=== PATIENT | female | born 1975 | race Caucasian/White ===

== ENCOUNTER 2016-03-24 09:24 | Emergency (ER) | payer MEDICAID ==
--- NOTE | 2016-03-24 10:44 | ERNOTE ---
Date of Service: 03/24/16 Time Seen by Provider: 03/24/16 10:19 Stated Complaint: SOB, CHEST PAIN Presenting Symptoms:: cough Source: patient Exam Limitations: no limitations Immunizations: IMMUNIZATION HX Immunizations Up to Date Yes History of Influenza Vaccine No Hx Pneumococcal Vaccination No Allergies/Adverse Reactions: Allergies Iodinated Contrast Media - IV Dye [IV Dye, Iodine Containing Contrast ] Allergy (Verified 03/24/16 10:03) iodine Allergy (Verified 03/24/16 10:03) Home Medications: HOME MEDICATIONS Ipratropium/Albuterol Sulfate [Combivent Respimat Inhal [place]] 2 puff IH QID #1 inhaler 07/04/15 [Last Taken Unknown] Albuterol Sulfate [Albuterol Sulfate 2.5 MG/0.5ML] 1 vial IH Q4H PRN #75 vial [Last Taken Unknown] Doxycycline Hyclate [Vibratab] 100 mg PO BID #20 tab 03/24/16 [Last Taken Unknown] Ipratropium [place] [Atrovent] 0.5 mg IH Q6H #75 vial.neb 03/24/16 [Last Taken Unknown] predniSONE [Prednisone] 3 tab PO DAILY #9 tab 03/24/16 [Last Taken Unknown] - History of Present Ilness Narrative: Pt. comes in with c/o dyspnea on excertion and cough for two week. Pt. states that symptoms started as sore throat with sinus congestion but has now turned to the chest congestion. Pt. has a hx of COPD with washout procedure previously. Pt. denies any NVD, fever, or headache at this time. Pt. states that cold weather, deep breathing, and lying down exacerbates the symptoms. Pt. is also a known current smoker. Review of Systems - Review of Systems Constitutional: Present: recent illness. Absent: fever, chills, weakness, fatigue, malaise EYE: Present: no symptoms reported ENT: Present: no symptoms reported. Absent: ear pain, nose pain, nose congestion, nasal drainage, sore throat Respiratory: Present: shortness of breath, cough, wheezing Cardiology: Present: chest pain - with deep breathing and cough only B lateral rib pain Gastrointestinal/Abdominal: Present: no symptoms reported. Absent: nausea, vomiting, diarrhea Genitourinary: Present: no symptoms reported Musculoskeletal: Present: no symptoms reported. Absent: back pain, joint pain Skin: Present: no symptoms reported Neurological: Present: no symptoms reported. Absent: headache, dizziness/light- headedness, numbness, tingling All Other Systems: All systems neg except as marked - Patient's Past Medical History Patient History - Medical: Anemia, Anxiety, Headache, Migraines Patient History - Cardiac/Respiratory: Asthma, COPD Patient History - Cancer: No Hx of Cancer Patient History - Surgical Procedures: No surgical history, Hysterectomy - Family History Mother Family History - Cardiac/Respiratory: COPD - Social History Living Situations: spouse Smoking Status: Current every day smoker Have you smoked in the past 12 months: Yes Do you dip or chew tobacco: No Patient requests Smoking Cessation Consult: No Initiate information on Smoking Cessation: No Alcohol Use: occasionally Drug Use: none, marijuana Physical Exam - Physical Exam General Appearance: Present: wd/wn, alert, no apparent distress Eye Exam: Normal inspection: bilateral, PERRL: bilateral, EOMI: bilateral Ears, Nose, Throat: Present: normal ENT inspection, hearing grossly normal, normal pharynx Neck: Present: normal inspection, nontender. Absent: lymphadenopathy (R), lymphadenopathy (L) Respiratory: Present: decreased breath sounds, expiration (prolonged), wheezing - BUL. 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 Absent: pallor, skin rash ED Progress - Vital Signs Patient's Vital Signs:: I have reviewed the patient's vital signs. Vital Signs: Vital Signs 03/24/16 09:56 Temperature 36.3 C L Pulse Rate 68 Respiratory 16 Rate Blood Pressure 154/85 O2 Sat by Pulse 99 Oximetry - X-Ray X-Ray #1 X-Ray: chest Interpretation: Reviewed by me X-ray Comments: no acute process with chronic emphysematous changes - Progress/Reassessment Chief Complaint: Upper Respiratory Symptoms Progress:: Unchanged Departure - Departure Clinical Impression: Bronchitis, COPD exacerbation Disposition: Home self-care Condition: Good Instructions: Chronic Obstructive Pulmonary Disease, [id number] Additional Instructions: Please follow up with primary provider in 1-2 days. Please start inhalers for COPD and finish prednisone and antibiotics as prescribed. Prescriptions: Albuterol Sulfate [Albuterol Sulfate 2.5 MG/0.5ML] 1 vial IH Q4H PRN #75 vial PRN Reason: Shortness Of Breath Doxycycline Hyclate [Vibratab] 100 mg PO BID #20 tab Ipratropium Avis [Atrovent] 0.5 mg IH Q6H #75 vial.neb predniSONE [Prednisone] 3 tab PO DAILY #9 tab
[2016-03-24 12:22] VITALS: BP 148/82
== END 2016-03-24 12:22 | disposition home or self-care (01) ==
LOC: ER 09:24
DX: J20.9 Acute bronchitis, unspecified (principal); J44.1 Chronic obstructive pulmonary disease with (acute) exacerbation; F17.210 Nicotine dependence, cigarettes, uncomplicated; Z90.710 Acquired absence of both cervix and uterus

== ENCOUNTER 2016-05-14 09:26 | Emergency (ER) | payer MEDICAID ==
[2016-05-14 09:38] VITALS: BP 152/83
--- OUTSIDE RECORDS SUMMARY | 2016-05-14 10:02 | XMS REPORT | Continuity of Care Document ---
:1975 Author Organization [facility] ([facility]) Address [address] [place] [address] Phone [phone] Care Team Providers Name Role Phone Provider, No-Primary Care Primary Care Provider Unavailable Source Comments This disclosure is being made pursuant to the Care Everywhere program, applicable federal and state laws, and may not contain all informaitonavailable regarding this patient.[facility] ([facility]) Active Allergies and Adverse Reactions No Active Allergies Current Medications Not on file Active Problems Not on file Social History Tobacco Use Types Packs/Day Years Used Date Never Assessed Last Filed Vital Signs Vital Sign Reading Time Taken Blood Pressure - - Pulse - - Temperature - - Respiratory Rate - - Height 1.64 m (5' 4.56") 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
[2016-05-14] MEDS ORDERED: CYCLOBENZAPRINE HCL 10 MG TABLET ONE (10:04)
[2016-05-14] MEDS ORDERED: KETOROLAC TROMETHAMINE 60 MG/2 ML VIAL IM ONE (10:04)
[2016-05-14] MEDS: CYCLOBENZAPRINE HCL 10 MG TABLET PO ONE (10:08)
[2016-05-14] MEDS: KETOROLAC TROMETHAMINE 60 MG/2 ML VIAL IM ONE (10:08)
--- NOTE | 2016-05-14 10:08 | ERNOTE ---
Back Pain ER HPI Date of Service: 05/14/16 Presenting Symptoms: injury/pain to back Time Seen by Provider: 05/14/16 09:50 Source: patient Exam Limitations: no limitations Immunizations: IMMUNIZATION HX Immunizations Up to Date Yes History of Influenza Vaccine No Hx Pneumococcal Vaccination No Allergies/Adverse Reactions: Allergies Iodinated Contrast Media - IV Dye [IV Dye, Iodine Containing Contrast ] Allergy (Verified 05/14/16 09:38) iodine Allergy (Verified 05/14/16 09:38) Home Medications: HOME MEDICATIONS Ipratropium/Albuterol Sulfate [Combivent Respimat Inhal [place]] 2 puff IH QID #1 inhaler 07/04/15 [Last Taken Unknown] Albuterol Sulfate [Albuterol Sulfate 2.5 MG/0.5ML] 1 vial IH Q4H PRN #75 vial [Last Taken Unknown] Ipratropium [place] [Atrovent] 0.5 mg IH Q6H #75 vial.neb 03/24/16 [Last Taken Unknown] Cyclobenzaprine HCl [Flexeril] 10 mg PO TID PRN #30 tab 05/14/16 [Last Taken Unknown] Naproxen [Naprosyn] 500 mg PO BID PRN #60 tab 05/14/16 [Last Taken Unknown] Narrative: Pt. comes in with c/o reaching down to pet her cat and states that she felt a pull in her back and severe pain that limits her movements. Pt. is also c/o tingling and pain radiating down her R leg without numbness or loss of function. Pt. also denies any incontinence of bowel or bladder. Pt. denies any alleviating factors but states that movement exacerbates the pain. Review of Systems - Review of Systems Constitutional: Present: no symptoms reported. Absent: recent illness, fever, chills, malaise EYE: Present: no symptoms reported ENT: Present: no symptoms reported Respiratory: Present: no symptoms reported. Absent: shortness of breath, cough , wheezing Cardiology: Present: no symptoms reported. Absent: chest pain, palpitations, edema Gastrointestinal/Abdominal: Present: no symptoms reported Genitourinary: Present: no symptoms reported Musculoskeletal: Present: back pain, muscle pain - R gluteus and lateral leg. Absent: neck pain, joint pain Skin: Present: no symptoms reported. Absent: rash, change in hair/nails Neurological: Present: tingling - R leg. Absent: headache, dizziness/light- headedness, numbness All Other Systems: All systems neg except as marked - Patient's Past Medical History Patient History - Medical: Anemia, Anxiety, Headache, Migraines Patient History - Cardiac/Respiratory: COPD Patient History - Cancer: No Hx of Cancer Patient History - Surgical Procedures: No surgical history, Hysterectomy Patient History - Other: None - Family History Mother Family History - Cardiac/Respiratory: COPD - Social History Living Situations: home Abuse History: No History of abuse Psych History: Hx of Anxiety Alcohol Use: occasionally Drug Use: none, marijuana - Immunizations Immunizations Up to Date: Yes Hx Pneumococcal Vaccination: No History of Influenza Vaccine: No Physical Exam - Physical Exam General Appearance: Present: wd/wn, alert, no apparent distress Eye Exam: Normal inspection: bilateral, PERRL: bilateral, EOMI: bilateral Ears, Nose, Throat: Present: normal ENT inspection, normal pharynx Neck: Present: normal inspection, nontender Respiratory: Present: no respiratory distress, normal breath sounds, no accessory muscle use, chest nontender, lungs clear. Absent: rales, rhonchi, stridor Cardiovascular/Chest: Present: regular rate, rhythm, no murmur, normal peripheral pulses Gastrointestinal/Abdominal: Present: normal bowel sounds, nontender, nondistended, soft, no organomegaly Back Exam: Present: no CVA tenderness, vertebral tenderness - L3-L5, decreased range of motion Extremity Exam: Present: normal inspection, non-tender, normal range of motion, no edema Neurological Exam: Present: alert, oriented, normal mood/affect, no motor/ sensory deficits Skin Exam: Present: normal color, warm/dry. Absent: pallor, skin rash ED Progress - Vital Signs Patient's Vital Signs:: I have reviewed the patient's vital signs. Vital Signs: Vital Signs 05/14/16 09:30 Temperature 36.5 C Pulse Rate 91 Respiratory 12 Rate Blood Pressure 152/83 O2 Sat by Pulse 100 Oximetry - X-Ray X-Ray #1 X-Ray: lumbosacral Interpretation: Reviewed by me X-ray Comments: no acute or significant chronic osseous process. - Progress/Reassessment Chief Complaint: Back Pain Progress:: Improved Departure Clinical Impression: Sciatica associated with disorder of lumbosacral spine Lumbar strain Qualifiers: Encounter type: initial encounter Qualified Code(s): S39.012A - Strain of muscle, fascia and tendon of lower back, initial encounter - Departure Disposition: Home self-care Condition: Good Instructions: Sciatica, [id number], Low Back Sprain With Rehab-Sports[facility] Additional Instructions: Please follow up with primary provider in 2-3 days. Prescriptions: Cyclobenzaprine HCl [Flexeril] 10 mg PO TID PRN #30 tab PRN Reason: MUSCLE SPASMS Naproxen [Naprosyn] 500 mg PO BID PRN #60 tab PRN Reason: Pain
== END 2016-05-14 11:24 | disposition home or self-care (01) ==
LOC: ER 09:26
DX: M54.40 Lumbago with sciatica, unspecified side (principal); S39.012A Strain of muscle, fascia and tendon of lower back, initial encounter; X50.1XXA Overexertion from prolonged static or awkward postures, initial encounter

== ENCOUNTER 2017-03-24 13:17 | Emergency (ER) | payer MEDICAID ==
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
[2017-03-24 14:06] LABS: Urine Bilirubin 1 mg/dl (NEGATIVE); Urine Ketone 5 mg/dL (NEGATIVE); Urine Nitrite Negative (NEGATIVE); Urine Protein 100 mg/dL (NEGATIVE); Urine Specific Gravity >=1.030 SP.GR. (1.005-1.010); Urine Urobilinogen 4 EU/dl (NORMAL); Urine pH 6.5 pH (5.0-7.0)
[2017-03-24 14:12] LABS: Hematocrit 44.7 % (37.0-47.0); Hemoglobin 15.5 gm/dL (12.5-16.0); Mean Cell Volume 95.5 fl (78-100); Mean Corpuscular Hemoglobin 33.1 pg (27-31); Mean Corpuscular Hgb Conc 34.7 g/dl (32-36); Mean Platelet Volume 9.5 fl (6.0-9.5); Neutrophil # 10.2 K/mm3 (1.3-6.0); Neutrophil % 70.3 % (42-75.0); Platelet Count 329 K/mm3 (150-450); Red Blood Count 4.68 M/mm3 (4.2-5.4); Red Cell Distribution Width 13.1 % (11.5-14.0); White Blood Count 14.5 K/mm3 (4.0-10.5)
[2017-03-24 14:19] LABS: Cocaine Ur Negative (NEGATIVE); Urine Barbiturate Negative (NEGATIVE); Urine Benzodiazepines Negative (NEGATIVE); Urine Opiates Negative (NEGATIVE); Urine PCP Negative (NEGATIVE)
[2017-03-24 14:20] LABS: Urine Appearance Slightly Cloudy; Urine Blood 5 /ul (NEGATIVE); Urine Color Dark Yellow; Urine RBC TRACE /hpf (0-5); Urine WBC None Seen /hpf (0-5)
[2017-03-24 14:21] LABS: Urine Bacteria TRACE; Urine THC Positive (NEGATIVE)
[2017-03-24 14:34] LABS: ALT 24 U/L (19-67); AST 24 U/L (0-48); Albumin * 4.1 gm/dl (3.4-5.0); Alkaline Phosphatase * 95 U/L (50-170); Anion Gap 14.1 mmol/L (6.8-13.8); BUN/Creatinine Ratio 13.6 (9.0-21.6); Bilirubin, Total 0.9 mg/dL (0.0-1.1); Blood Urea Nitrogen 12 mg/dL (3-23); Ca. Corrected For Albumin 8.9 mg/dL (8.4-10.2); Calcium * 9.3 mg/dL (7.9-10.9); Carbon Dioxide 28.7 mmol/L (24-32.6); Chloride 100 mmol/L (97-106); Glucose * 150 mg/dL (70-110); Potassium 3.8 mmol/L (3.4-4.6); Salicylate 4.7 mg/dL (2.8-20.0); Sodium 139 mmol/L (132-142); TSH * 1.327 uIU/mL (0.358-3.74); Total Protein 8.1 gm/dL (6.2-8.2)
--- NOTE | 2017-03-24 17:07 | ERNOTE ---
Psychological HPI - Date Date of Service: 03/24/17 - General Chief Complaint: Psychiatric Problem Source: Reports: patient, RN/MD, RN notes reviewed Exam Limitations: Reports: clinical condition - Immun/Allergies/Home Medications Allergies/Adverse Reactions: Allergies Iodinated Contrast- Oral and IV Dye [IV Dye, Iodine Containing Contrast ] Allergy (Verified 05/14/16 09:38) Home Medications: HOME MEDICATIONS Ipratropium/Albuterol Sulfate [Combivent Respimat Inhal [place]] 2 puff IH QID #1 inhaler 07/04/15 [Last Taken Unknown] Albuterol Sulfate [Albuterol Sulfate 2.5 MG/0.5ML] 1 vial IH Q4H PRN #75 vial [Last Taken Unknown] Ipratropium [place] [Atrovent] 0.5 mg IH Q6H #75 vial.neb 03/24/16 [Last Taken Unknown] - History of Present Illness Time Seen by Provider: 03/24/17 13:37 Onset/duration: Reports: other - Mental status has been deteriorating over past week. Intent: Reports: no prior thoughts-suicide Associated Symptoms: Reports: agitated, paranoid, hallucinating, other - Insomnia, jamilah. Review of Systems - Narrative Narrative: Patient presents to ER with grandiose delusions. Visit lasts approx. 15 minutes. Is hallucinating, talking to unseen entities and responding. Experiencing auditory and visual hallucinations. Speech is rapid and disorganized. Thoughts are not linear. States that she is 300,000 years old and has not slept for 60,000 years when asked how long it had been since she had slept. Is able to respond to questions but answers are inappropriate to content of conversation. States that she is a amaral, she is [place] who has been dozens of times, including to [employer]. Claims that her body is a clone and is not sure what she is made of. Denies any drug use. States that she has been told in the past that she is bipolar and schizophrenic but has not received any psychiatric care that she can recall. While not actively suicidal , she does present as an imminent threat to herself and others due to severe jamilah with psychosis. Recommend inpatient psychiatric care. Handouts on bipolar disorder given to patient along with contact number for follow up appointment when discharged. Patient agreeable to hospitalization at this time. Court committal has been obtained for care. - Review of Systems Constitutional: Present: no symptoms reported EYE: Present: no symptoms reported Skin: Present: no symptoms reported Psych: Present: emotional problems - Patient's Past Medical History Patient History - Medical: Anemia, Anxiety, Depression, Headache, Migraines Patient History - Cardiac/Respiratory: COPD Patient History - Cancer: No Hx of Cancer Patient History - Surgical Procedures: Hysterectomy, T & A Patient History - Other: None - Family History Mother Family History - Cardiac/Respiratory: COPD - Social History Living Situations: home Abuse History: No History of abuse Psych History: Hx of Anxiety, Hx of Depression Smoking Status: Current every day smoker Cigarettes Packs Per Day: 1 Have you smoked in the past 12 months: No Do you dip or chew tobacco: No Patient requests Smoking Cessation Consult: No Initiate information on Smoking Cessation: No Alcohol Use: rarely Drug Use: marijuana - Immunizations Immunizations Up to Date: Yes Hx Pneumococcal Vaccination: No History of Influenza Vaccine: No Psychological Exam - Exam General Appearance: Present: alert, moderate distress, anxious, thin, irritable Neurological: Present: alert, disoriented x 3 Thoughts/Hallucinations: Present: auditory hallucinations, delusions, flight of ideas, grandiose, paranoid, visual hallucinations Behavior/Eye Contact/Speech: Present: cooperative, increased rate of speech ED Progress - Date and Time Seen: Date and Time: 03/24/17 17:04 Admit to inpatient psychiatric care. - Vital Signs Vital Signs: Vital Signs 03/24/17 03/24/17 03/24/17 13:21 13:53 14:01 Temperature 36.8 C 36.8 C 36.8 C Pulse Rate 110 H 110 H 110 H Respiratory 18 18 18 Rate Blood Pressure 119/76 119/76 119/76 O2 Sat by Pulse 98 98 98 Oximetry - Progress/Reassessment Chief Complaint: Psychiatric Problem Progress:: Unchanged Time Seen by Provider: 03/24/17 13:37 Departure Clinical Impression: Psychosis Qualifiers: Psychosis type: unspecified psychosis type Qualified Code(s): F29 - Unspecified psychosis not due to a substance or known physiological condition - Departure Disposition: Other health care facility Condition: Stable
[2017-03-25 02:32] VITALS: BP 106/60
== END 2017-03-25 02:25 | disposition short-term general hospital (02) ==
LOC: ER 13:17
DX: F29 Unspecified psychosis not due to a substance or known physiological condition (principal); F17.210 Nicotine dependence, cigarettes, uncomplicated; J44.9 Chronic obstructive pulmonary disease, unspecified
CPT/HCPCS: 36415; 80053; 80307; 81001; 84443; 85025; 99284; G0480; G0481